=== PATIENT | male | born 1960 | race Caucasian/White ===

== ENCOUNTER 2017-05-25 15:43 | Inpatient (IN) | payer OTHER ==
[2017-05-25] VITALS (8 sets, daily range): BP systolic 106–219; BP diastolic 66–144
[~2017-05-25] VITALS: Ht 188 cm; Wt 88.0 kg
[2017-05-25] MEDS ORDERED: VISTARIL 25 MG25 M1 PO (16:05)
[2017-05-25] MEDS ORDERED: NORVASC10 MG PO (16:05)
[2017-05-25] MEDS ORDERED: TOPROL XL100 MG PO (16:06)
[2017-05-25] MEDS ORDERED: METFORMIN HCL500 MG PO ×2 (16:07→16:08)
[2017-05-25 16:13] LABS: ABSOLUTE BASOPHILS 0.1 thou/uL (0.0-0.2); ABSOLUTE EOSINOPHILS 0.3 thou/uL (0.0-0.7); ABSOLUTE LYMPHOCYTES 1.2 thou/uL (0.8-5.3); ABSOLUTE MONOCYTES 0.6 thou/uL (0.0-1.2); ABSOLUTE NEUTROPHILS 6.8 thou/uL (1.6-8.1); BASOPHILS 1.4 %; EOSINOPHILS 2.9 %; HEMATOCRIT 34.8 % (42.0-52.0); HEMOGLOBIN 11.7 gm/dL (14.0-18.0); LYMPHOCYTES 13.7 %; MCHC 33.7 g/dL (28.0-37.0); MONOCYTES 6.4 %; MPV 8.6 fl. (7.2-11.1); NUCLEATED RBCS 0 /100WBC; PLATELET COUNT* 184 thou/uL (150-400); POLYS 75.6 %; RBC 3.56 mil/uL (4.50-6.00); RDW-CV 14.5 % (10.5-14.5)
[2017-05-25 16:22] LABS: CALCIUM 8.2 mg/dL (8.5-10.1); CREATININE 15.8 mg/dL (0.6-1.3); POTASSIUM 4.7 mmol/L (3.5-5.1)
[2017-05-25 16:26] LABS: BE -8.2 mmol/L (-2 to +3); HCO3 15.3 mmol/L (22.0-26.0); PCO2 26.4 mmHg (35.0-45.0); PO2 78.1 mmHg (75.0-100.0); pH 7.382 (7.340-7.450)
[2017-05-25 16:27] LABS: ALBUMIN 2.6 g/dL (3.4-5.0); TOTAL BILIRUBIN 0.4 mg/dL (<0.1-1.0); TROPONIN-I LEVEL 0.13 ng/mL (<0.06)
[2017-05-25 16:45] LABS: INFLUENZA A ANTIGEN None Detected (None Detect); INFLUENZA B ANTIGEN None Detected (None Detect)
--- NOTE | 2017-05-25 18:30 | NUR ---
A WHITE MALE AGE 57 ADMITTED TO ICU ROOM 3 WITH CHEIF DIAGNOSIS OF ARF AND NONSTEMI. PT TRANSPORTED FROM CT TO ROOM. PT PLACED ON AT 2.0 LITERS.SIGNIFIGANT OTHER AND SON IN WATING ROOM. PT DENIES ANY COMPLAINTS OF PAIN AT THIS TIME. PT REFUSES F/C. PT TROPONIN BEING DRAWN AT THIS TIME. CONSULT TO BE OBTAINED FROM CASE MANAGEMENT DUE TO PT INABILITY TO AFFORD CURRENT HOME MEDS WHICH PT HAS BEEN OUT OF.SHIFT REPORT TO BE GIVEN.
[2017-05-26] VITALS (25 sets, daily range): BP systolic 120–173; BP diastolic 73–111
[2017-05-26 02:07] LABS: GLYCOHEMOGLOBIN (HGB A1C) 5.1 % (4.8-5.6)
[2017-05-26 02:44] LABS: ABSOLUTE BASOPHILS 0.1 thou/uL (0.0-0.2); ABSOLUTE EOSINOPHILS 0.1 thou/uL (0.0-0.7); ABSOLUTE LYMPHOCYTES 0.9 thou/uL (0.8-5.3); ABSOLUTE MONOCYTES 0.5 thou/uL (0.0-1.2); BASOPHILS 0.8 %; EOSINOPHILS 0.9 %; HEMATOCRIT 33.2 % (42.0-52.0); HEMOGLOBIN 11.1 gm/dL (14.0-18.0); LYMPHOCYTES 10.2 %; MCH 33.1 pg (26.0-34.0); MCHC 33.5 g/dL (28.0-37.0); MCV 98.8 fL (80.0-100.0); MONOCYTES 5.5 %; NUCLEATED RBCS 0 /100WBC; PLATELET COUNT* 167 thou/uL (150-400); POLYS 82.6 %; RBC 3.36 mil/uL (4.50-6.00); RDW-CV 14.3 % (10.5-14.5); WBC 8.5 thou/uL (4.0-11.0)
[2017-05-26 02:57] LABS: ANION GAP 17 mmol/L (7-16); BUN 125 mg/dL (7-18); CHLORIDE 102 mmol/L (98-107); CHOLESTEROL 137 mg/dL (<200); CO2 18 mmol/L (21-32); CREATININE 15.4 mg/dL (0.6-1.3); GLUCOSE 116 mg/dL (70-99); HDL CHOLESTEROL 38 mg/dL (>40); LDL CHOLESTEROL 78 mg/dL (<100); SODIUM 137 mmol/L (136-145); TC:HDL 3.6 Ratio (Not establshd); TRIGLYCERIDE 105 mg/dL (<150); VLDL 21 mg/dL (<40)
[2017-05-26 03:01] LABS: SERUM ASSESSMENT Clear
--- NOTE | 2017-05-26 11:16 | NUR ---
CARE ASSUMED AT 0700. PATIENT AWAKE, AOX4 UPON ENTERING ROOM. LETHARGIC THROUGHOUT THE MORNING. REPORTS HE DID NOT SLEEP LAST NIGHT. REFER TO ASSESSMENT AND VITALS. PULMONARY IS TREATING PATIENT FOR COPD EXACERBATION AEB SOA. LEVAQUIN DOSED BY PHARMACY FOR ELEVATED BUN/CREAT. STEROIDS STARTED TODAY. CT SCAN OF CHEST FOR NODULE IN LUNG COMPLETED. CARDIOLOGY COMPLETED ECHO TODAY. NEPHROLOGY DISCONTINUED LISINOPRIL, CHANGED FLUIDS TO 1/2 NS WITH 1 AMP BICARB, ORDERED LAB WORKUPS FOR AUTOIMMUNE DISEASES, AND CONSULTED IR FOR TUNNELED DIALYSIS CATHETER. ALL EXPLAINED TO PATIENT BY RESIDENTIAL APPRAISER, DR PHILLIPS AND PATIENT AGREED TO PLAN OF CARE. WILL CONTINUE WITH THIS PLAN OF CARE.
--- NOTE | 2017-05-26 11:30 | NUR ---
SPOKE WITH PT AND SIGNIFICANT OTHER CARMELINA AT BEDSIDE. PT LIVES AT HOME WITH CARMELINA AND THEIR 11 YEAR OLD SON. PT WAS ACTIVE AND INDEP AND WORKING UNTIL HE BECAME ILL, CARMELINA SAID HE HASN'T BEEN ABLE TO WORK FOR SEVERAL WEEKS. PT HAS NO HEALTH INSURANCE, HE NORMALLY GOES TO [facility] FOR HIS HEALTH CARE NEEDS. PT HAS BEEN OUT OF HIS MEDICATIONS AT HOME 'FOR AWHILE.' CARMELINA ASKING QUESTIONS ABOUT APPLYING FOR MEDICAID AND DISABILITY. GAVE HER INFORMATION ON APPLYING FOR DISABILITY, EXPLAINED THAT PT WOULD BE REFERRED TO [facility] TO ASSIST WITH MEDICAID PROCESS. ALSO PROVIDED CARMELINA WITH INFORMATION ON COMMUNITY RESOURCES TO HELP WITH OTHER FINANCIAL NEEDS. EXPLAINED ROLE OF CASE MGT, WILL CONTINUE TO FOLLOW. PT TO GET DIALYSIS CATH TODAY WITH PLANS TO START DIALYSIS TOMORROW.
[2017-05-26 12:35] LABS: APTT 28.7 Seconds (25.0-31.3); INR 1.1; PROTIME 10.7 Seconds (9.20-11.50)
[2017-05-26 12:40] LABS: % SATURATION 36 % (20-39); IRON 80 ug/dL (50-175)
--- NOTE | 2017-05-26 14:08 | NUR ---
PATIENT LEFT UNIT TO HAVE TUNNELED DIALYSIS CATHETER PLACED BY DR AC AT 1400.
--- NOTE | 2017-05-26 15:54 | NUR ---
PATIENT RETURNED FROM HAVING TUNNELED DIALYSIS CATHETER PLACED AT 1550.
--- NOTE | 2017-05-26 16:08 | 2DMMODE ---
[place] [address] 2 D/M-MODE ECHOCARDIOGRAM Name: GRISEL FOSTER Room: [address] ADM IN [facility]#: [id number] Admission: 05/25/17 Attend Phys: Salty Cain Discharge: Date of : 60 Date of Service: 05/26/17 1607 Report #: [id number] THIS REPORT FOR: //name// APPROVED REPORT Study performed: 05/26/2017 10:48:45 EXAM: Comprehensive 2D, Doppler, and color-flow Echocardiogram Patient Location: In-Patient Room #: 003 Status: routine BSA: 2.11 HR: 93 bpm BP: 137/85 mmHg Rhythm: NSR Other Information Study Quality: Good Indications Dyspnea 2D Dimensions LVEF(%): 52.88 (>50%) IVSd: 14.83 (7-11mm) LVOT Diam: 20.88 (18-24mm) LVDd: 46.19 mm PWd: 11.75 (7-11mm) Ascending Ao: 30.65 (22-36mm) LVDs: 33.67 (25-40mm) Aortic Root: 33.16 mm Dupree's LVEF: 52.88 % Volumes Left Atrial Volume (Systole) LA ESV Index: 29.00 mL/m2 Aortic Valve AoV Peak Tao.: 1.33 m/s AO Peak Gr.: 7.10 mmHg LVOT Max P.92 mmHg AO Mean Gr.: 4.33 mmHg LVOT Mean P.35 mmHg LVOT Max V: 0.85 m/s AO V2 VTI: 24.51 cm LVOT Mean V: 0.53 m/s SHENG (VTI): 2.17 cm2 LVOT V1 VTI: 15.53 cm Mitral Valve E/A Ratio: 1.60 [place] [address] 2 D/M-MODE ECHOCARDIOGRAM Name: GRISEL FOSTER Room: [address] IN [facility].#: [id number] Admission: 05/25/17 Attend Phys: Salty Cain Discharge: Date of : 60 Date of Service: 05/26/17 1607 Report #: [id number] MV Decel. Time: 203.05 ms MV E Max Tao.: 1.03 m/s MV PHT: 58.88 ms MVA (PHT): 3.74 cm2 TDI E/Lateral E': 8.58 E/Medial E': 11.44 Medial E' Tao.: 0.09 m/s Lateral E' Tao.: 0.12 m/s Pulmonary Valve PV Peak Tao.: 0.89 m/s PV Peak Gr.: 3.16 mmHg Left Ventricle The left ventricle is normal size. There is normal LV segmental wall motion. Mild concentric left ventricular hypertrophy. Left ventricular systolic function is mild to moderately decreased. LVEF is 45%. The left ventricular diastolic function is normal. Right Ventricle The right ventricle is normal size. The right ventricular systolic function is normal. Atria The left atrium size is normal. The right atrium size is normal. Aortic Valve aortic valvular sclerosis; vegetation cannot be excluded No aortic regurgitation is present. There is no aortic valvular stenosis. Mitral Valve The mitral valve is normal in structure. Trace mitral regurgitation. No evidence of mitral valve stenosis. Tricuspid Valve The tricuspid valve is normal in structure. Unable to assess PA pressure. Trace tricuspid regurgitation. Pulmonic Valve The pulmonary valve is normal in structure. There is no pulmonic valvular regurgitation. Great Vessels The aortic root is normal in size. IVC [place] [address] 2 D/M-MODE ECHOCARDIOGRAM Name: GRISEL FOSTER Room: [address] IN [facility]#: [id number] Admission: 05/25/17 Attend Phys: Salty Cain Discharge: Date of : 60 Date of Service: 05/26/17 1607 Report #: [id number] collapses with >50% inspiration Pericardium There is no pericardial effusion. <Conclusion> The left ventricle is normal size. Mild concentric left ventricular hypertrophy. Left ventricular systolic function is mild to moderately decreased. LVEF is 45%. The left ventricular diastolic function is normal. The right ventricle is normal size. The left atrium size is normal. aortic valvular sclerosis; vegetation cannot be excluded There is no aortic valvular stenosis. No aortic regurgitation is present. There is no aortic valvular stenosis. The mitral valve is normal in structure. Trace mitral regurgitation. The tricuspid valve is normal in structure. IVC is normal in size and collapses with >50% inspiration There is no pericardial effusion. There is normal LV segmental wall motion. <ELECTRONICALLY SIGNED> By: Karan Sands MD, FACC 05/26/17 1607 1607 1607 Karan Sands MD, FACC /INF
--- NOTE | 2017-05-26 17:32 | EKG ---
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: : 1960 Requested By: Jody Bowser Order Number: [id number] MD: Gilbert Thibodeaux Measurements Intervals [place] Rate: 122 P: 55 CT: 147 QRS: 11 QRSD: 80 T: 215 QT: 313 QTc: 446 Interpretive Statements Sinus tachycardia Left ventricular hypertrophy Consider left ventricular hypertrophy Anterior Q waves, possibly due to LVH Abnormal T, consider ischemia, diffuse leads No previous ECG available for comparison Electronically Signed On 05-26-2017 17:32:27 ORIENTAL MEDICINE PRACTITIONER by Gilbert Thibodeaux [email or web address] <ELECTRONICALLY SIGNED> By: Gilbert Thibodeaux MD, FACC 05/26/17 1732 1549 1549 Gilbert Thibodeaux MD, [facility] /EPI
--- NOTE | 2017-05-26 17:45 | NUR ---
PATIENT ASSESSMENT REMAINS UNCHANGED. REFER TO CHARTING. PATIENT RECIEVED TUNNELED DIALYSIS CATHETER TODAY BY DR AC, AND PER DR PHILLIPS WILL BEGIN DIALYSIS TOMORROW. PATIENT AND FAMILY UPDATED THAT IT MAY OR MAY NOT BE A TEMPORARY FIX. CASE MANAGEMENT WORKING WITH PATIENT TO PROVIDE COMMUNITY RESOURCES PATIENT IS THE SOLE PROVIDER FOR THE FAMILY. AT THIS TIME, PATIENT DENIES FURTHER NEEDS FROM NURSING STAFF.
[2017-05-26 18:58] LABS: URINE BILIRUBIN NEGATIVE (Negative); URINE BLOOD 3+ (Negative); URINE CLARITY CLEAR; URINE COLOR YELLOW; URINE GLUCOSE-RANDOM 1+ (Negative); URINE KETONES NEGATIVE (Negative); URINE LEUKOCYTES-REFLEX NEGATIVE (Negative); URINE NITRITE-REFLEX NEGATIVE (Negative); URINE PROTEIN 3+ (Negative); URINE SPECIFIC GRAVITY 1.025 (1.005-1.030); URINE UROBILINOGEN 0.2 E.U./dl (0.2-1.0)
[2017-05-26 19:08] LABS: SQUAMOUS 4-10 Moderate /LPF (0-3)
[2017-05-26 19:10] LABS: BACTERIA-REFLEX 1-9 Few /HPF (None Seen); MUCUS 0-3 Light strn/LPF (None Seen); URINE RBC 3-10 Few /HPF (0-2); URINE WBC-REFLEX 0-5 Rare /HPF (0-5)
[2017-05-26 19:14] LABS: AMORPHOUS URATES Moderate /LPF (None Seen); FINE GRANULAR CASTS 0-3 Few /LPF (None Seen); WAXY CAST 0-3 Few /LPF (None Seen)
[2017-05-26 21:07] LABS: PARATHYROID HORMONE 339 pg/mL (15-65)
[2017-05-26 22:09] LABS: eGFR IF AFRICAN AMERICAN 4 (>59)
[2017-05-27] VITALS (21 sets, daily range): BP systolic 122–188; BP diastolic 56–112
[2017-05-27 04:23] LABS: HEMATOCRIT 31.1 % (42.0-52.0); HEMOGLOBIN 10.5 gm/dL (14.0-18.0); MCH 33.2 pg (26.0-34.0); MCHC 33.7 g/dL (28.0-37.0); MCV 98.7 fL (80.0-100.0); MPV 9.1 fl. (7.2-11.1); NUCLEATED RBCS 0 /100WBC; PLATELET COUNT* 180 thou/uL (150-400); RBC 3.16 mil/uL (4.50-6.00); RDW-CV 14.3 % (10.5-14.5); WBC 9.8 thou/uL (4.0-11.0)
[2017-05-27 04:54] LABS: ALBUMIN 2.3 g/dL (3.4-5.0); CALCIUM 7.7 mg/dL (8.5-10.1); CREATININE 15.7 mg/dL (0.6-1.3); TOTAL BILIRUBIN 0.3 mg/dL (<0.1-1.0); TOTAL PROTEIN 6.4 g/dL (6.4-8.2)
[2017-05-27 05:21] LABS: POTASSIUM 6.4 mmol/L (3.5-5.1)
[2017-05-27 05:23] LABS: ABSOLUTE LYMPHOCYTES 0.5 thou/uL (0.8-5.3); ABSOLUTE MONOCYTES 0.3 thou/uL (0.0-1.2)
[2017-05-27 05:24] LABS: ANISOCYTOSIS 1+; PLATELET ESTIMATE ADEQUATE; POIKILOCYTOSIS 1+
--- NOTE | 2017-05-27 07:39 | NUR ---
ASSUMED CARE OF PATIENT AFTER RECEIVING BEDSIDE REPORT. PATIENT STATES HE IS FEELING MUCH BETTER. PATIENT IS SITTING AT THE EDGE OF BED. PATIENT IS STILL HYPERTENSIVE. ATOMIC PROCESS ENGINEER IN PLACE, SINUS TACHYCARDIA NOTED.
--- NOTE | 2017-05-27 11:21 | CON ---
[address] [address] CONSULTATION Name: GRISEL FOSTER Room: [address] IN [facility].#: [id number] Admission: 05/25/17 Attend Phys: Liza Corcoran Discharge: Date of : 60 Report #: [id number] THIS REPORT FOR: //name// CC: KUN physician/PCP Salty Cain REASON FOR CONSULTATION: Pulmonary nodule. HISTORY OF PRESENT ILLNESS: The patient is a 57-year-old male patient who presented to the Emergency Room with 2 weeks history of shortness of breath. The patient told me that he does not have a doctor, he does not follow with physician, although he is aware that he has some short of kidney disease. He smokes since his teenage years till now, around 1/2 a pack per day. For the last 2 weeks, he has been having increasing shortness of breath, cough and what he described as funny noises in his chest. He is producing green sputum. He is not sure if he had any fever. He denied any lower extremity edema. He reported that he had no sick contact, although reviewing the ER visit, his reported multiple family members had cold symptoms. He never had breathing issues before. According to the patient, he does not have history of lung disease, he is not on any inhalers and he is not on any oxygen at home and never been diagnosed with COPD. He was found to have significantly elevated BUN and creatinine. Also there is a report of confusion, although during my evaluation, he was awake, alert, oriented and provided appropriate history. REVIEW OF SYSTEMS: He reported that he had nausea and vomiting. He vomited a lot in the last 2 weeks, although overall he looks comfortable. He was on room air during my evaluation. He had no calf tenderness, no abdominal pain. The rest of the review system was negative. PAST MEDICAL HISTORY: Per the records, hypertension, diabetes mellitus and he told me he knows that he has chronic kidney disease. PAST SURGICAL HISTORY: Bilaterally one hernia repair. HOME MEDICATIONS: He is on Norvasc, hydroxyzine, metoprolol, metformin. ALLERGIES: PENICILLIN. SOCIAL HISTORY: He continues to smoke half a pack per day since he was teenage year, although he slowed down in the last 2 weeks because of shortness of breath. He does not drink alcohol excessively, does not abuse drugs. PHYSICAL EXAMINATION: VITAL SIGNS: On examination, he is on room air with saturation 97%, blood pressure was running high 170/100, pulse rate of 106. He is afebrile. GENERAL: He is comfortable in bed, speaks in full sentences, not in distress, [place] [address] CONSULTATION Name: GRISEL FOSTER Room: [address] IN .R.#: [id number] Admission: 05/25/17 Attend Phys: Liza Corcoran Discharge: Date of : 60 Report #: [id number] HEENT: Normocephalic, atraumatic. Pupils are equal, reactive to light. Extraocular muscle movements intact, ____ jaundice. Externally ears look healthy and normal. Nasal cavity patent passages. Oral cavity, slightly dry mucous membrane with Mallampati of II-III. NECK: Supple. No palpable lymph node, no palpable thyroid. Trachea central. CHEST: Diminished air movement bilaterally. Some crackles heard at the bases bilaterally. Very faint end expiratory wheeze. Symmetrical expansion, no tenderness. No deformity of the chest on inspection. HEART: S1, S2. No murmur, no gallop. ABDOMEN: Benign, soft, lax, nontender, positive bowel sounds. No masses felt. No rebound, no rigidity. EXTREMITIES: Lower extremities no edema, no calf tenderness. SKIN: Normal for age and race. No rash. LYMPHATICS: No palpable lymph node. PSYCHIATRIC: Mood and affect: During my evaluation, he was appropriate. Good insight and judgment. NEUROLOGIC: Moving 4 extremities spontaneously. No focal weakness. Cranial nerves grossly normal. LABORATORY DATA: Reviewed. He has a BUN of 125, creatinine of 15.4, although his potassium is 5, sodium 137. His white blood count is 9, hemoglobin 11.7, platelets 184. His D-dimer was elevated. His influenza A and B screen was negative. His V/Q scan was reported as low probability for PE. CT head, no intracranial pathology acutely. His chest x-ray showed interstitial prominence suggestive for interstitial lung disease versus interstitial edema and nodule on the left lung base. IMPRESSION: 1. Dyspnea and shortness of breath. 2. Presumed chronic obstructive pulmonary disease, likely in exacerbation. 3. Pulmonary infiltrate/pneumonia. 4. Pulmonary nodule. 5. Possible non-ST elevation myocardial infarction. PLAN: The patient's shortness of breath is multifactorial. I feel he has the pulmonary infiltrate and possibly pneumonia in addition to bronchitis. He is a smoker for a long time, although he does not carry a diagnosis, but his clinical picture is consistent with COPD exacerbation. On top of that he has chronic renal insufficiency with possible some fluid overload. I am going to treat him as COPD exacerbation with steroids, antibiotic and scheduled nebulization treatment. We will collect sputum for culture and sensitivity. We will do a CT scan of the chest for further evaluation of pulmonary nodule and the infiltrate. Cardiology input is pending, Nephrology input is pending. [facility] [address] [place] [address] CONSULTATION Name: GRISEL FOSTER Room: [address] IN .R.#: [id number] Admission: 05/25/17 Attend Phys: Liza Corcoran Discharge: Date of : 60 Report #: [id number] Thank you for the consult. We will follow along with you. <ELECTRONICALLY SIGNED> By: Rick Marcus MD 05/27/17 1121 0920 1920Rick Marcus MD /nt
--- NOTE | 2017-05-27 12:00 | NUR ---
PT TO ROOM 218 VIA WC. PT UP TO BR WITH STEADY GAIT. FAMILY AT BS. AWAITING DIALYSIS TODAY
--- NOTE | 2017-05-27 17:26 | NUR ---
PT UP TO ROOM THIS AM. PT ON DIALYSIS THIS AFTERNOON. FAMILY AT BS AND UPDATED ON PLAN OF CARE. PT INSTRUCTED ON STRESS TEST IN AM
[2017-05-28] VITALS (7 sets, daily range): BP systolic 146–187; BP diastolic 86–108
[2017-05-28 02:07] LABS: HEPATITIS B SURFACE AG Negative (Negative)
--- NOTE | 2017-05-28 04:24 | NUR ---
PT A/OX4, ST ON THE MONITOR, RA, FREE FROM PAIN/SOA, UP AD JANET, MEDS/ASSESSMENET PER CHARTING, HOURLY ROUNDING IN PLACE, FALL PRECAUTIONS IN PLACE, TEMP DIALYSIS CATH IN PLACE TO RIGHT UPPER CHEST WITH DRESSING IN PLACE, DRY DRAINAGE NOTED ON GAUZE UNDER TRANSPARENT DRESSING, LINE DRAWN AROUND TO MONITOR AREA, HAND THERMAL CUTTER IN PLACE, IV X1 REMOVED DUE TO CLOTTED OFF, ONE IV REMAINS IN PLACE SL, PT AWARE OF NPO STATUS AT MIDNIGHT DUE TO STRESS TEST IN THE AM, PT REC DIALYSIS 05/27 AND WHEN REVIEWING PHYSICAN NOTED PT TO HAVE DIALYSIS 05/28 WELL, HOUSE SUP REPORTED PT APPEARS TO BE SCHEDULED FOR 1230, PT REPORTS HE WILL NOT TAKE HYDRALAZINE AGAIN BECAUSE WHEN HE TOOK IT RECENTLY IT GAVE HIM A HEADACHE AND HE THREW UP, EDUCATED PT ON MONITORING HIS VS Q4 HOURS AND REPORTING ANY TYPE OF NEW SYMPTOMS SUCH WRAY, CP, DIZZINESS, AND PT STATED HIS UNDERSTANDING. WILL CONT TO MONITOR.
[2017-05-28 05:03] LABS: ABSOLUTE LYMPHOCYTES 0.6 thou/uL (0.8-5.3); ABSOLUTE MONOCYTES 0.5 thou/uL (0.0-1.2); ABSOLUTE NEUTROPHILS 11.1 thou/uL (1.6-8.1); BASOPHILS 0.2 %; HEMATOCRIT 32.1 % (42.0-52.0); HEMOGLOBIN 10.5 gm/dL (14.0-18.0); LYMPHOCYTES 5.1 %; MCH 32.6 pg (26.0-34.0); MCHC 32.8 g/dL (28.0-37.0); MCV 99.4 fL (80.0-100.0); MONOCYTES 4.3 %; NUCLEATED RBCS 0 /100WBC; PLATELET COUNT* 180 thou/uL (150-400); POLYS 90.4 %; RBC 3.23 mil/uL (4.50-6.00); RDW-CV 14.2 % (10.5-14.5); WBC 12.3 thou/uL (4.0-11.0)
[2017-05-28 05:28] LABS: ALBUMIN 2.3 g/dL (3.4-5.0); CALCIUM 7.9 mg/dL (8.5-10.1); TOTAL BILIRUBIN 0.2 mg/dL (<0.1-1.0); TOTAL PROTEIN 6.7 g/dL (6.4-8.2)
[2017-05-28 05:31] LABS: CREATININE 13.5 mg/dL (0.6-1.3); POTASSIUM 5.1 mmol/L (3.5-5.1)
--- NOTE | 2017-05-28 07:45 | NUR ---
RECEIVED REPORT. ASSUMED CARE OF PT AT 0730. CARDIAC MOTNIORING IN PLACE SR. AM ASSESSMENT AND VITALS COMPLETED CHARTED. PT'S BP ELEVATED THIS AM. PT ALERT AND ORIENTED. PT NPO PENDING STRESS TEST THIS AM. PT IS ALSO TO HAVE DIALYSIS AT 1230 TODAY. PT INFORMED OF PLAN OF CARE. PT DENIES ANY COMPLAINTS OF PAIN OR DISCOMFORT. PT IS UP INDEPENDENTLY. PT INFORMED OF PLAN OF CARE. PT COMMUNICATES UNDERSTANIDNG. CALL LIGHT IS WITHIN REACH. WILL CONTINUE TO MONITOR FOR DURAIOTN OF SHIFT.
--- NOTE | 2017-05-28 07:58 | NUR ---
PT SCREENING POSITIVE ON SEPSIS SCREENING DUE TO ELEVATED WBC, CREAT, AND HR. UCALL PLACED TO DR FOOTE REGARDING SCREENING AND POTASSIUM LAB, CALL REC WITH NO NEW ORDERS, PT SCHEDULED FOR DIALYSIS TODAY, INFORMED DAY RN.
[2017-05-28 10:08] LABS: ANTI-DNA SCREEN 1 IU/mL (0-9); ANTI-RNP <0.2 AI (0.0-0.9); GLOMERULR BASEM MEMBRN AB 4 units (0-20)
[2017-05-28 12:11] LABS: GLOBULIN TOTAL 3.6 g/dL (2.2-3.9); M-SPIKE Not Observed g/dL (Not Observed)
--- NOTE | 2017-05-28 13:32 | CARDNUC ---
[place] [address] CARDIAC NUCLEAR IMAGING REPORT Name: GRISEL FOSTER Room: [address] IN [facility]#: [id number] Admission: 05/25/17 Attend Phys: Salty Cain Discharge: Date of : 60 Date of Service: 05/28/17 1332 Report #: [id number] THIS REPORT FOR: //name// APPROVED REPORT Exam: Nuclear Stress Test Indication: Chest pain, Dyspnea Patient Location: In-Patient Room #: 218 Stress Tech: Kenia Elias Stress Nurse: Suki Mendes RN NM Tech:CRISTINE Carballo Ht: 6 ft 2 in Wt: 193 lbs BSA: 2.14 m2 BMI: 24.7 Medical History Medical History: htn dm Medications: metoprolol, amlodipine, aspirin, atrovastatin, isosorbide, lisinopril Allergies: penicillin Cardiac Risk Factors: htn,smoking,age,dm Previous Cardiac Procedures: none NM EXAM: Myocardial Perfusion REST/STRESS Imaging Protocol: Rest Tc-99m/Stress Tc-99m 1 day Resting Data Rest SPECT myocardial perfusion imaging was performed in supine position 30 minutes following the intravenous injection of 11.5 mCi of Tc-99m Sestamibi. Time of rest injection: 0755 Time of rest imagin The images were gated to evaluate regional wall motion and calculate left ventricular ejection fraction. Administration Route: IV Pharmacologic Stress Pharmacologic stress test was performed by injecting Regadenoson 0.4 mg IV push followed by the intravenous injection of 36.0 mCi of Tc-99m Sestamibi. Time of stress injection: 914 Time of stress imagin Administration Route: IV Gated Stress SPECT was performed 40 [place] [address] CARDIAC NUCLEAR IMAGING REPORT Name: GRISEL FOSTER Room: [address] IN [facility].#: [id number] Admission: 05/25/17 Attend Phys: Salty Cain Discharge: Date of : 60 Date of Service: 05/28/17 1332 Report #: [id number] injection. The images were gated to evaluate regional wall motion and calculate left ventricular ejection fraction. Prone imaging was performed. Study Quality Study: Fair Artifact: Moderate Diaphragmatic artifact Study Data At rest, the left ventricular ejection fraction was 48%.. Post stress, the left ventricular ejection was 48%.. TID = 0.96. Perfusion Supine images at rest and post Lexiscan stress show a moderate size area of photopenia in the inferior wall with diaphragmatic attenuation artifact. Post stress prone images show relatively uniform uptake of the radioisotope throughout the myocardium without defect. Gated studies show diffuse mild hypokinesis without obvious focal wall motion abnormality. Wall Motion Overall left ventricular systolic function appears mildly decreased with diffuse global hypokinesis without focal wall motion abnormality. Nuclear Conclusion ECG Findings: negative for ischemia Clinical Findings: negative for ischemia Nuclear Findings: negative for ischemia Exercise Capacity: not assessed Left Ventricular Function: abnormal Myocardial perfusion images show no defect to suggest infarct or ischemia. On gated studies left ventricle appears to be mildly diffusely hypokinetic without focal wall motion abnormality. Findings possibly consistent with a mild cardiomyopathy. This is not a high risk study Interpreted by: Gilbert Thibodeaux M.D. [facility] Electronically Approved: 05/28/2017 13:32:18 Stress Test Details Stress Test: Pharmacologic stress testing performed using 0.4 mg of regadenoson per 5 mL given IV over 10 seconds. Reason for pharmacologic stress test: [place] [address] CARDIAC NUCLEAR IMAGING REPORT Name: GRISEL FOSTER Room: [address]#: [id number] Admission: 05/25/17 Attend Phys: Salty Cain Discharge: Date of : 60 Date of Service: 05/28/17 1332 Report #: [id number] limitation. HR Resting HR: 107 bpm Max Heart Rate (APMHR): 163 bpm Max HR Achieved: 114 bpm Target HR (85% APMHR): 138 bpm % of APMHR: 69 Recovery HR: 110 bpm BP Resting BP: 186/109 mmHg Max BP: 159/92 mmHg ECG Resting ECG: Sinus Rhythm, nonspecific ST-T abnormalities Stress ECG: Sinus Rhythm, nonspecific ST-T abnormalities ST Change: None Arrhythmia: None Recovery ECG: Sinus Rhythm, NSSTT changes Recovery ST Change: None Recovery Arrhythmia: None Clinical Reason for Termination: Completed protocol Stress Symptoms: Nausea, Emesis, lightheaded Exercise duration: 0 min sec Exercise capacity: 1 METs Functional Aerobic Impairment 70% Patient had some nausea and vomiting with Lexiscan infusion but no chest pain. Nurse Comments pt co n/v, injected with aminophylline and symptoms resolved Stress ECG Conclusion The baseline 12-lead EKG showed sinus rhythm with diffuse T-wave inversion. EKGs obtained during and post Lexiscan infusion showed sinus rhythm with persistent T-wave inversion. There were no significant ST segment changes. There were no significant stress-induced arrhythmias. <Conclusion> The baseline 12-lead EKG showed sinus rhythm with diffuse T-wave inversion. EKGs obtained during and post Lexiscan infusion showed sinus rhythm with persistent T-wave inversion[place] [address] CARDIAC NUCLEAR IMAGING REPORT Name: GRISEL FOSTER Room: [address]#: [id number] Admission: 05/25/17 Attend Phys: Salty Cain Discharge: Date of : 60 Date of Service: 05/28/17 1332 Report #: [id number] segment changes. There were no significant stress-induced arrhythmias. <ELECTRONICALLY SIGNED> By: Gilbert Thibodeaux MD, FACC 05/28/171331 31 31 Gilbert Thibodeaux MD, FACC /INF
--- NOTE | 2017-05-28 17:11 | NUR ---
VSS. CARDIAC MONITORING IN PLACE WITH NO CHANGES THIS SHIFT. PT REMAINS ON RA. IV SALINE LOCKED. PT HAS HAD SOME COMPLAINTS OF HEADACHE THIS SHIFT. PRN TYLENOL GIVEN. PT PROGRESSING TOWARDS GOALS. PT DID HAVE MOTION SICKNESS WHEN GOING TO AND COMING BACK FROM DIALYSIS. PT UP INDEPENDENTLY IN ROOM. PT PLANNED TO HAVE RENAL BIOPSY ON WEDNESDAY. PT INFORMED OF PLAN OF CARE. CALL LIGHT IS WITHIN REACH. WILL CONTINUE TO MONITOR FOR DURAITON OF SHIFT.
[2017-05-29] VITALS: BP 160/92
[2017-05-29 04:00] VITALS: BP 141/81
[2017-05-29 04:56] LABS: ALBUMIN 2.3 g/dL (3.4-5.0); POTASSIUM 4.4 mmol/L (3.5-5.1); TOTAL BILIRUBIN 0.2 mg/dL (<0.1-1.0); TOTAL PROTEIN 6.4 g/dL (6.4-8.2)
[2017-05-29 05:09] LABS: CREATININE 9.7 mg/dL (0.6-1.3)
--- NOTE | 2017-05-29 05:49 | NUR ---
PT CALLED AND TOLD STAFF HE WAS GOING TO THROW UP. PT HAD MODERATE SIZE AMOUNT OF CLEAR EMISIS. PT GIVEN PRN PHENERGAN IV PUSH.
[2017-05-29 07:00] VITALS: BP 134/76
--- NOTE | 2017-05-29 08:00 | NUR ---
PT RESTING IN BED, SLEEP INTERUPTED , APPEARS O X 4, DENIES CHEST PAIN, SOB, PAIN OR DISCOMFORT, r CHEST DIALYSIS CATH, LAVERN N ON DIALYSIS THIS AFTERNOON
--- NOTE | 2017-05-29 13:33 | NUR ---
PT LEAVING FLOOR FOR DILAYSIS
[2017-05-29 17:25] VITALS: BP 162/98
--- NOTE | 2017-05-29 18:27 | NUR ---
Pt progressing towards goals. Had day 3 dialyis today. Bp improving. Some nausea today, remaisn o x 4, denies chest pain, SOB, pain or discomfort
[2017-05-29 20:01] VITALS: BP 150/87
--- NOTE | 2017-05-29 22:00 | NUR ---
ASSESSMENT AND VITALS COMPLETED CHARTED, VSS. PATIENT DENIES CHEST PAIN, SOB, PAIN OR DISCOMFORT. PATIENT DOES STATE HE IS VERY ANXIOUS AND WORKED UP BECAUSE "HE LOST HIS JOB RECENTLY AND HE JUST RECEIVED AN EVICTION NOTICE TO BE MOVED OUT OF HIS HOUSE BY Jun." PATIENT REQUESTING SOMETHING FOR ANXIETY. ORDERS RECEIVED FOR XANAX. FAMILY AT BEDSIDE. CALL LIGHT WITHIN REACH. GOAL IS ANXIETY AND BLOOD PRESSURE MANAGEMENT.
[2017-05-29 23:41] VITALS: BP 136/80
[2017-05-30 04:00] VITALS: BP 130/80
--- NOTE | 2017-05-30 04:17 | NUR ---
PATIENT PROGRESSING TOWARDS GOALS: PATIENT REPORTS FEELING MUCH BETTER AND LESS ANXIOUS. BLOOD PRESSURE CONTROLLED THROUGHOUT SHIFT WITHOUT PRN BP MEDS. HOURLY ROUNDING OBSERVED. CALL LIGHT WITHIN REACH
[2017-05-30 04:35] LABS: HEMATOCRIT 29.8 % (42.0-52.0); HEMOGLOBIN 10.1 gm/dL (14.0-18.0); MCH 33.2 pg (26.0-34.0); MCHC 34.1 g/dL (28.0-37.0); MCV 97.4 fL (80.0-100.0); MPV 8.5 fl. (7.2-11.1); RBC 3.06 mil/uL (4.50-6.00); RDW-CV 14.3 % (10.5-14.5); WBC 11.4 thou/uL (4.0-11.0)
[2017-05-30 04:52] LABS: CALCIUM 8.3 mg/dL (8.5-10.1); MAGNESIUM 1.8 mg/dL (1.8-2.4); POTASSIUM 4.6 mmol/L (3.5-5.1)
[2017-05-30 05:02] LABS: CREATININE 7.4 mg/dL (0.6-1.3)
[2017-05-30 13:18] VITALS: BP 149/90
[2017-05-30 16:32] VITALS: BP 141/87
--- NOTE | 2017-05-30 19:01 | NUR ---
PATINET RESTING IN BED. UP AD JANET IN ROOM. RIGHT TEMP TUNNELED DIALYSIS CATH. DIALYSIS IN AM ON WEDNESDAY AND RENAL BX SCHEDULED FOR 13:00 ON WEDNESDAY. VITLA SIGNS STABLE AND PATINET IN NO APPARENT DISTRESS AT THIS TIME. HOURLY ROUNDING COMPLETED FOR PATIENT SAFETY.
[2017-05-30 20:00] VITALS: BP 152/98
[2017-05-30 23:51] VITALS: BP 153/90
[2017-05-31] VITALS (15 sets, daily range): BP systolic 132–170; BP diastolic 72–108
--- NOTE | 2017-05-31 02:54 | NUR ---
PT A/OX4, ST-SR ON THE MONOTOR, VSS, RA, UP AD JANET, FREE FROM PAIN/SOA, MEDS/ASSESSMENT PER CHARTING, HOURLY ROUNDING/FALL PRECAUTIONS IN PLACE, PT REPORTED MULTIPLE TIMES HE HAS THE URGE TO URINATE BUT IS UNABLE TO GO, BLADDER SCAN COMPLETED WITH 290 CC NOTED, PT ATTEMPTED MULTIPLE TIMES TO URINATE WITHOUT BEING ABLE TO VOID, STRAIGHT CATH ORDER REC AND COMPLETED WITH DARK YELLOW OUTPUT OF 125 CC REC, R-DIALYSIS PORT FREE FROM HEAT/SWELLING, DRESSING IN PLACE, DAUGHTER STAYED OVER NIGHT, PT GIVEN SLEEPING AIDE AT 0200 AND EDUCATED PT ON TURNING TV/LIGHTS OFF, AND TRYING TO REST, PT WAS UP WATCHING TV AND PLAYING CARD GAMES WITH DAUGHTER. WILL CONT TO MONITOR.
[2017-05-31 05:09] LABS: HEMATOCRIT 28.4 % (42.0-52.0); HEMOGLOBIN 9.9 gm/dL (14.0-18.0); MCH 32.7 pg (26.0-34.0); MCV 93.6 fL (80.0-100.0); MPV 8.4 fl. (7.2-11.1); RBC 3.03 mil/uL (4.50-6.00); RDW-CV 13.8 % (10.5-14.5); WBC 11.2 thou/uL (4.0-11.0)
[2017-05-31 05:45] LABS: ALBUMIN 2.3 g/dL (3.4-5.0); CALCIUM 7.9 mg/dL (8.5-10.1); POTASSIUM 4.6 mmol/L (3.5-5.1); TOTAL BILIRUBIN 0.2 mg/dL (<0.1-1.0); TOTAL PROTEIN 5.6 g/dL (6.4-8.2)
[2017-05-31 05:50] LABS: CREATININE 8.7 mg/dL (0.6-1.3)
--- NOTE | 2017-05-31 10:38 | NUR ---
PATIENT CURRENTLY IN DIALYSIS. RENAL BIOPSY SCHEDULED AT 13:00. VITAL SIGNS STABLE AND PATINET IN NOAPPARENT DISTRESS. THERE IS A QUESTION REGARDING PROPER DIETARY REGIMEN FOR HIS CURRENT RENAL FUNCTION. WILL ADDRESS DIETARY REQUIREMWENTS WITH PRIMARY AND NEPHROLOGY. EF 45%. WILL CONTINUE TO MONITOR PATIENT. HOURLY ROUNDING BEING PERFORMED FOR PATIENT SAFETY.
--- NOTE | 2017-05-31 15:27 | NUR ---
Spoke with Dr Cain today, Pt is end stage kidney disease and will need outpt dialysis set up per Dr Cain. Nurse to speak with renal Dr. MORENO to initiate outpt dialysis set up once ok'd by renal Dr. Pt is [place] pending, JOSH will updated [facility] once final dx available. Following.
[2017-06-01 00:25] VITALS: BP 170/101
[2017-06-01 04:23] VITALS: BP 152/95
[2017-06-01 04:24] LABS: ALBUMIN 2.2 g/dL (3.4-5.0); CALCIUM 7.8 mg/dL (8.5-10.1); CALCIUM 7.9 mg/dL (8.5-10.1); PHOSPHORUS* 5.1 mg/dL (2.5-4.9); POTASSIUM 5.2 mmol/L (3.5-5.1); POTASSIUM 5.3 mmol/L (3.5-5.1); TOTAL BILIRUBIN 0.2 mg/dL (<0.1-1.0); TOTAL PROTEIN 5.7 g/dL (6.4-8.2)
[2017-06-01 04:32] LABS: CREATININE 6.4 mg/dL (0.6-1.3)
[2017-06-01 04:33] LABS: CREATININE 6.4 mg/dL (0.6-1.3)
[2017-06-01 04:59] LABS: HEMATOCRIT 25.9 % (42.0-52.0); HEMOGLOBIN 9.2 gm/dL (14.0-18.0); MCH 33.1 pg (26.0-34.0); MCHC 35.4 g/dL (28.0-37.0); MCV 93.6 fL (80.0-100.0); MPV 8.4 fl. (7.2-11.1); NUCLEATED RBCS 0 /100WBC; PLATELET COUNT* 138 thou/uL (150-400); RBC 2.77 mil/uL (4.50-6.00); RDW-CV 13.6 % (10.5-14.5)
--- NOTE | 2017-06-01 05:51 | NUR ---
ASSUMED PT CARE AT 1930, PT IS A&OX4, PT IS TRACING NSR/ST ON THE MONITOR, ON RA SATTING MID TO HIGH 90'S. PT IS UP AD JANET IN HIS ROOM AND STABLE ON HIS FEET. PT HAD A RIGHT TEMP DIALYSIS CATH. PT HAD A RENAL BIOPSY TO RIGHT KIDNEY, BIOPSY SITE IS CDI. PT HAD EPISODE OF NAUSEA AND VOMITING ONCE THIS SHIFT. NAUSEA MEDICATIONS GIVEN PER JUL. BED IN LOW POSITION, CALL LIGHT IN RAECH, BED IN LOW POSITION. HOURLY ROUNDING COMPLETED FOR PT SAFETY. Y
[2017-06-01 05:58] LABS: ABSOLUTE LYMPHOCYTES 0.4 thou/uL (0.8-5.3); ABSOLUTE MONOCYTES 0.1 thou/uL (0.0-1.2); ABSOLUTE NEUTROPHILS 6.6 thou/uL (1.6-8.1); ANISOCYTOSIS 1+; PLATELET ESTIMATE ADEQUATE; POIKILOCYTOSIS 1+
--- NOTE | 2017-06-01 10:02 | NUR ---
[facility] rep to come and meet with Pt this week to begin [place] medicaid process. Anticipate that Pt will need outpt dialysis set up, waiting for renal's input. Following.
[2017-06-01 11:29] VITALS: BP 157/91
[2017-06-01 15:47] VITALS: BP 121/79
--- NOTE | 2017-06-01 19:49 | NUR ---
KERA RESTING IN BED. EXTENSIVE TIME SPENT EDUCATING PATIENT REGARDING RENAL STATUS, RENAL DIET, AND THE NEED FOR CONTINUED DIALYSIS UPON DISCHARGE. VITAL SIGNS STABLE AND PAITETIN NOAPPARENT DISTRESS A THIS TIME. HOURLY ROUNDING COMPLETED FOR PATIENT SAFETY.
[2017-06-01 20:22] VITALS: BP 153/99
[2017-06-02 00:37] VITALS: BP 144/89
[2017-06-02 04:05] VITALS: BP 139/84
[2017-06-02 05:08] LABS: ABSOLUTE BASOPHILS 0.1 thou/uL (0.0-0.2); ABSOLUTE EOSINOPHILS 0.1 thou/uL (0.0-0.7); ABSOLUTE LYMPHOCYTES 1.6 thou/uL (0.8-5.3); ABSOLUTE NEUTROPHILS 9.8 thou/uL (1.6-8.1); BASOPHILS 0.4 %; EOSINOPHILS 0.7 %; HEMATOCRIT 26.1 % (42.0-52.0); HEMOGLOBIN 8.9 gm/dL (14.0-18.0); LYMPHOCYTES 12.8 %; MCH 33.1 pg (26.0-34.0); MCHC 34.1 g/dL (28.0-37.0); MCV 97.2 fL (80.0-100.0); MONOCYTES 7.7 %; MPV 8.7 fl. (7.2-11.1); NUCLEATED RBCS 0 /100WBC; PLATELET COUNT* 129 thou/uL (150-400); POLYS 78.4 %; RBC 2.69 mil/uL (4.50-6.00); WBC 12.5 thou/uL (4.0-11.0)
[2017-06-02 05:20] LABS: POTASSIUM 4.3 mmol/L (3.5-5.1)
[2017-06-02 05:21] LABS: ALBUMIN 2.3 g/dL (3.4-5.0); PHOSPHORUS* 5.8 mg/dL (2.5-4.9); POTASSIUM 4.3 mmol/L (3.5-5.1)
[2017-06-02 05:32] LABS: CREATININE 8.3 mg/dL (0.6-1.3)
[2017-06-02 05:36] LABS: CREATININE 8.2 mg/dL (0.6-1.3)
--- NOTE | 2017-06-02 06:32 | NUR ---
Pt states he rested well overnight. Daughter stayed in pt's room overnight. Dtr states she will need some documentation to show her senior administrative services officer to demonstrate pt is in hospital. Pt is alert, oriented, and up ad alanna. VSS. Will continue to monitor.
--- NOTE | 2017-06-02 07:25 | NUR ---
CHNAGE OF SHIFT, BEDSIDE REPORT GIVEN ASUUMED PATIENT CARE PATIENT UP IN DIALYSIS
[2017-06-02 08:00] VITALS: BP 140/98
--- NOTE | 2017-06-02 08:53 | NUR ---
Faxed outpt dialysis referral to [facility], per renal note yesterday, Pt will need outpt dialysis at id. Awaiting decision to accept and chair time.
--- NOTE | 2017-06-02 11:49 | S ---
[place] [address] SURGICAL PATH RPT PROCEDURE Name: GRISEL FOSTER Room: [address] IN .R.#: [id number] Admission: 05/25/17 Date of : 60 Discharge: Report #: [id number] Path Case #: [id number] PATHOLOGY REPORT COLLECTION DATE: 05/31/2017 RECEIVED DATE: 05/31/2017 SUBMITTING PHYS: Dr. Salty Cain OTHER PHYS: SPECIMEN(S) RECEIVED: A.Right renal bx * * * * * * * * * * * * FINAL DIAGNOSIS: Please see next page for scanned image of report submitted by [facility] bank consultant pathologist, Blayne Alaniz M.D. (HOLDEN:amj; d/t: 06/02/2017) PATHOLOGIST: Trevon Glaser M.D. REPORT ELECTRONICALLY SIGNED BY: Trevon Glaser M.D. DATE/TIME: 06/02/2017 11:49 * * * * * * * * * * * * GROSS PATHOLOGY: The specimen is received in formalin labeled "Grisel Foster, right kidney". Received is a single needle core of pale acevedo soft tissue measuring approximately 1.9 cm in length and 0.1 cm in diameter. The specimen is forwarded to an outside laboratory for further processing. The specimen is received in Deonte fixative, labeled "Grisel Foster, right kidney BX". Received is a single needle core of pink-acevedo, soft tissue measuring approximately 1.5 cm in length and 0.1 cm in diameter. The specimen is forwarded to an outside laboratory for direct immunofluorescence studies. (TSD; 05/31/2017) CLINICAL HISTORY: Elevated creat INITIAL CPT CODE(S): A; 43669 Professional and Technical services performed by [employer], [address], [place] [address]. [place] [address] SURGICAL PATH RPT PROCEDURE Name: GRSIEL FOSTER Room: [address] IN [facility]#: [id number] Admission: 05/25/17 Date of : 60 Discharge: Report #: [id number] Path Case #: [id number] [facility] [address] [address] PHONE: [phone] DIRECTOR: Damir Kohler M.D. * * * END OF REPORT * * *
[2017-06-02 12:24] VITALS: BP 175/89
--- NOTE | 2017-06-02 13:40 | NUR ---
Nutrition: Consult received again today. Pt is a new dialysis pt. RD spoke with pt and daughters yday about renal diet for dialysis. Provided family with my contact info and encourage them to call with questions/concerns. Pt needs to follow up with dialysis RD outpatient as well.
--- NOTE | 2017-06-02 14:35 | OP ---
[facility] [address] [place] [address] OPERATIVE REPORT Name: GRISEL FOSTER Room: [address] IN M.R.#: [id number] Admission: 05/25/17 Attend Phys: Liza Corcoran Discharge: Date of : 60 Report #: [id number] THIS REPORT FOR: //name// CC: KUN physician/PCP Salty Cain DATE OF SERVICE: 05/26/2017 PREOPERATIVE DIAGNOSIS: Acute renal failure. POSTOPERATIVE DIAGNOSIS: Acute renal failure. SURGEON: David Durham DO. CLASS A LINEMAN: None. PROCEDURE: 1. Ultrasound-guided access, right internal jugular vein. 2. Tunneled dialysis catheter placement. ANESTHESIA: Moderate sedation. ESTIMATED BLOOD LOSS: Minimal. SPECIMEN: None. COMPLICATIONS: None. CONDITION: Stable. DISPOSITION: ICU. INDICATIONS FOR THE PROCEDURE AND CONSENT: The patient is a 57-year-old male who presented with acute renal failure with creatinine greater than 15. Tafe Lecturer assessed the patient and expects the patient will need long-term hemodialysis and requested tunneled dialysis catheter placement for both acute and likely chronic hemodialysis access. Risks and benefits of this were discussed with the patient including infection, bleeding, pneumothorax, need for additional procedures including AV fistula. The patient wished to proceed, was consented and scheduled. PROCEDURE IN DETAIL: After timeout was performed, the patient was placed in supine position with sterile prep and drape of the anterior neck and chest wall. Ultrasound was utilized to identify the right internal jugular vein and Seldinger technique used to place a Seldinger needle and wire. The needle was removed and exchanged for an introducer sheath. A second wire was advanced [facility] [address] [place] [address] OPERATIVE REPORT Name: GRISEL FOSTER Room: [address] IN [facility].#: [id number] Admission: 05/25/17 Attend Phys: Liza Corcoran Discharge: Date of : 60 Report #: [id number] through the introducer sheath and the sheath was removed. The wire ____ confirmed to be within the vena cava by fluoroscopy. The tract was dilated with the medium and large dilators and the dual lumen catheter placed over both wires and into the vena cava. The stylets and wires were then removed and the catheter was clamped. A separate stab incision was made on the chest wall after injecting lidocaine and a tunnel created between the 2 incisions. Catheter was then tunneled out on the chest wall without difficulty. Catheter was cut to length and two caps were applied and each catheter aspirated and flushed without difficulty. The catheter was then locked with 1000 units per mL of heparin. The neck incision was then closed with 4-0 Monocryl suture and Dermabond dressing was applied. Sterile dressing was applied to the exit site of the catheter. The patient tolerated the procedure well. Lap, needle and instrument counts were correct. A portable chest x-ray is pending. <ELECTRONICALLY SIGNED> By: David Durham DO 06/02/17 1435 1602 [id number] Durham DO /nt
[2017-06-02 15:31] VITALS: BP 125/80
--- NOTE | 2017-06-02 18:38 | NUR ---
PATIENT IN ROOM WATCHING TV REMAINS A AND O X 4 NSR LUNGS CTA/DIM/RA GOOD APPETITE BM TODAY URINE OUTPUT SEVEWRAL TIMES, UNSEEN UP AD JANET VARIOUS BRUISES AND SEVERAL ABRASIONS AND SCABS NO C/O PAIN TODAY IV L FA 20 GA SL R CHEST SC TRIPLE CL ACCUCHECKS 90/132, OFF THE FLOOR IN DIALYSIS THIS AM UNABLE TO GET AM READING DIALYSIS TODAY 2L OFF VEIN MAPPING COMPLETED TODAY ABN LABS MONITORED WBC 12.5, HGB 8.9, CR 7.3, BUN 76
[2017-06-02 20:27] VITALS: BP 134/82
[2017-06-03 00:08] VITALS: BP 153/93
--- NOTE | 2017-06-03 02:10 | NUR ---
Pt reports no complaints. VSS, BP elevated at times. SR-ST per monitor. Pt's s.o. inquired about whether hospital will fill prescriptions. States they have applied for Medicaid, but she is concerned about how they'll be able to afford medications as he had always been the provider, but now unable to work. Pt has IV to LFA, but there is order for no art/francisco punctures, BP, IV, or lab draws to LUE for future AVF. Limb alert placed to L arm. Pt requests that IV remain until morning. Will continue to monitor.
[2017-06-03 04:15] VITALS: BP 156/87
[2017-06-03 05:35] LABS: ABSOLUTE MONOCYTES 0.9 thou/uL (0.0-1.2); ABSOLUTE NEUTROPHILS 8.8 thou/uL (1.6-8.1); BASOPHILS 0.1 %; EOSINOPHILS 0.2 %; HEMATOCRIT 26.3 % (42.0-52.0); HEMOGLOBIN 8.8 gm/dL (14.0-18.0); LYMPHOCYTES 9.4 %; MCHC 33.3 g/dL (28.0-37.0); MCV 99.3 fL (80.0-100.0); MONOCYTES 8.6 %; NUCLEATED RBCS 0 /100WBC; PLATELET COUNT* 132 thou/uL (150-400); POLYS 81.7 %; RBC 2.65 mil/uL (4.50-6.00); WBC 10.8 thou/uL (4.0-11.0)
[2017-06-03 05:44] LABS: CALCIUM 7.7 mg/dL (8.5-10.1); POTASSIUM 4.5 mmol/L (3.5-5.1)
[2017-06-03 08:00] VITALS: BP 128/66
--- NOTE | 2017-06-03 09:51 | NUR ---
Spoke with Pt regarding disposition. Updated Pt on status of outpt dialysis set up. Spoke with Hussein at [facility], working on confirming funding source. Pt is [place] pending and should qualify for Medicare, if he has enough work credits. Hussein informed that Pt's case would be sent to the unfunded department and could take several days to confirm funding source. Updated Pt. Pt requested that CM contact his SO, Jossyphyllis for her. Following.
--- NOTE | 2017-06-03 11:14 | NUR ---
RECEIVED REPORT. ASSUMED CARE OF PT AT 0730. PT A/O X4. VSS. O2 SAT 96% ON ROOM AIR. CARDAIC MONITOR IN PLACE TRACING SR/ST. AM ASSESSMENT AND VITALS COMPLETED CHARTED. IV SALINE LOCKED. TEMPORARY RIGHT CHEST DIALYSIS ACCESS DEVICE IN PLACE. PT DENIES PAIN OR DISCOMFORT AT THIS TIME. BS LOW THIS AM, 32 - JUICE AND CRACKERS GIVEN; PT UP TO 69. PT ATE ABOUT 50% OF BREAKFAST. PT ANXIOUS TO GO HOME; SEEMS FRUSTRATED WITH LIFE SITUATION. PT INFORMED OF PLAN OF CARE. PT COMMUNICATES UNDERSTANDING. PT WORKING WITH CASE MANAGEMENT. LOW FALL RISK PRECAUTIONS IN PLACE. CALL LIGHT IS WITHIN REACH. WILL CONTINUE TO MONITOR.
[2017-06-03 11:51] VITALS: BP 145/85
[2017-06-03 15:30] VITALS: BP 138/85
--- NOTE | 2017-06-03 18:18 | NUR ---
VSS. PT REMAINS A&O X4. O2 SAT >90% ON ROOM AIR. CARDAIC MONITOR IN PLACE TRACING SR/ST. PT SHOWING FAIR APPETITE THIS SHIFT, EATING AROUND 50% OF MEALS. BLOOD GLUCOSE LEVEL UP TO NORMAL RANGE THIS EVENING AFTER BEING 62 AT LUNCH. PT SPOKE ON THE PHONE FREQUENTLY WITH FAMILY. PT UP TO BATHROOM TO VOID A COUPLE TIMES, OLIGURIC. PT HAD BM X2. PT CONTINUES TO DENY PAIN OR DISCOMFORT. PT ANXIOUS TO GO HOME. PT WAITING ON DIALYSIS PLACEMENT. LOW FALL RISK PRECAUTIONS IN PLACE. CALL LIGHT IS WITHIN REACH. WILL CONTINUE TO MONITOR FOR DURATION OF SHIFT. HOURLY ROUNDING PERFORMED.
[2017-06-03 20:00] VITALS: BP 152/87
[2017-06-04] VITALS (9 sets, daily range): BP systolic 134–175; BP diastolic 62–103
--- NOTE | 2017-06-04 03:37 | NUR ---
PT ALERT ORIENTED. XANAX GIVEN ONCE. TELEMETRY SHOWS ST. ON RA. ACCUCHECK HS 57. PT ATE VALENTINO BROUGHT BY FAMILY. THEN RECHECK OF BS 104. R SUBCLAVIAN HD CATH COVERED. LEFT LIMB ALERT ON TO PRESERVE FOR FURTURE FISTULA PLACEMENT. WILL CONTINUE TO MONITOR.
--- NOTE | 2017-06-04 05:54 | NUR ---
PTS 0400 BP 175/103 HR 108. HYDRALAZINE IVP 10MG GIVEN. BP DOWN 140/90 HR 115.
--- NOTE | 2017-06-04 08:10 | NUR ---
RECEIVED REPORT. ASSUMED CARE OF PT AT 0730. VSS. PT A&O X4. O2 SAT 96% ON ROOM AIR. OPERATIONS VICE PRESIDENT IN PLACE TRACING SR/ST. AM ASSESSMENT AND VITALS COMPLETED CHARTED. IV TO RIGHT FOREARM SALINE LOCKED. TEMPORARY DIALYSIS ACCESS TO RIGHT SUBCLAVIAN IN PLACE. LIMB ALERT TO LEFT EXTREMITY FOR POTENTIAL FISTULA PLACEMENT. PT DENIES PAIN OR DISCOMFORT AT THIS TIME. PT TO HAVE DIALYSIS THIS AM AROUND 830. PT INFORMED OF PLAN OF CARE, COMMUNICATES UNDERSTANDING. PT SEEMS SAD AND IS ANXIOUS FOR DISCHARGE. REASSURANCE GIVEN. LOW FALL RISK PRECAUTIONS IN PLACE. CALL LIGHT IS WITHIN REACH. WILL CONTINUE TO MONITOR.
--- NOTE | 2017-06-04 15:04 | NUR ---
Following for d/c planning needs. Received telephone call from [facility]. Spoke with Tr and Leanna. Per previous CM note, plan was for pt to go to [facility] for dialysis, not [place]. Called Leonidas at [facility]. He said he was not aware that pt had changed clinic sites. He said he would need to obtain financial and medical clearance for [facility] and he would not have clearance until Wednesday. Will remain available to assist as needed.
--- NOTE | 2017-06-04 19:47 | NUR ---
VSS. O2 SAT REMAINS >90% ON ROOM AIR. CASH SALES AUDIT CLERK REMAINS IN PLACE WITH NO CHANGES THIS SHIFT. PT COMPLETED DIALYSIS AND THEN WENT TO THE OR FOR DIALYSIS FISTULA PLACEMENT. PT RETURNED TO UNIT AT 1500. PT RESTED UNTIL DINNER - SHOWED GOOD APPETITE AT DINNER. UP AD JANET. PT ASKED QUESTIONS REGARDING FISTULA - EDUCATION GIVEN. PT COMMUNICATES UNDERSTANDING. SLOWLY PROGRESSING TOWARD GOALS. FAMILY AT BEDSIDE THIS EVENING. LOW FALL RISK PRECAUTIONS IN PLACE. PT REPOSITIONING SELF IN THE BED. CALL LIGHT IS WITHIN REACH. HOURLY ROUNDING PERFORMED.
[2017-06-05 04:03] VITALS: BP 147/85
--- NOTE | 2017-06-05 04:37 | NUR ---
ASSUMED CARE OF PATIENT AT [address] ON THE MONITOR O2 SAT MAINTAINED ON RA CONTINUES TO BE UP AD JANET THE ROUTINE REGIMEN CONTINUES TO BE EFFECTIVE FOR SX MANAGEMENT EDUCATION GIVEN AT SHIFT START TO PATIENT ET SPOUSE REGARDING AV FISTULA TUNNELED ET TEMP ACCESS PATIENT AND SPOUSE STATE UNDERSTANDING ET DENY FURTHER CONCERNS SAFETY INTERVENTIONS CONTINUE BED LOWERED WHEELS LOCKED CALL LIGHT IN REACH SIDE RAILS UP REPORT TO BE GIVEN TO ONCOMING RN
--- NOTE | 2017-06-05 07:15 | NUR ---
CHANGE OF SHIFT, BEDSIDE REPORT GIVEN ASSUMED PATIENT CARE PATIENT SEEN AT BEDSIDE, ASLEEP
[2017-06-05 08:00] VITALS: BP 154/83
[2017-06-05 12:00] VITALS: BP 172/105
[2017-06-05 14:49] LABS: CALCIUM 7.9 mg/dL (8.5-10.1); CREATININE 6.8 mg/dL (0.6-1.3); POTASSIUM 4.7 mmol/L (3.5-5.1)
[2017-06-05 16:12] VITALS: BP 137/87
[2017-06-05 16:14] VITALS: BP 137/87
--- NOTE | 2017-06-05 18:47 | NUR ---
PATIENT SITTING IN BED WATCHING TV REMAINS A AND O X 4 SR/ST LUNGS CTA/DIM/RA GOOD APPETITE LAST BM T-1 POOR URINE OUTPUT UNSEEN, ONE VOID REPORTED UP AD JANET VARIOUS SCABS, BRUISES IV R FA 2O GA SL L UARM FISTULA WITH THRILL AND BRUIE TEMP PORT R SC C/O TENDERNESS AT L UARM FISTULA SITE REF PAIN MEDICATION ACCUCHECKS 90/60/106 CALL LIGHT IN REACH AND INSTRUCTION GIVEN AND FOLLOWED REF SCDS
[2017-06-05 20:00] VITALS: BP 124/75
[2017-06-06] VITALS: BP 113/68
[2017-06-06 04:11] VITALS: BP 142/73
--- NOTE | 2017-06-06 05:54 | NUR ---
ASSUMED CARE OF PATIENT AT 1900 THE PATIENT PROGRESSES TOWARDS GOALS REMAINS ST ON THE MONITOR O2 SAT MAINTAINED ON RA CONTINUES TO BE UP AD JANET THE ROUTINE ET PRN REGIMEN CONTINUES TO BE EFFECTIVE FOR SX MANAGEMENT MORPHINE ADMINISTERED X 1 FOR LUE FISTULA SITE PAIN PATIENT REPORTS EPISODE OF EMESIS IN WASTE BASKET NOT WITNESSED OFFERED ZOFRAN ET PATIENT DECLINED STATING HE LAID TOO FLAT WAS THE REASON WHY SAFETY INTERVENTIONS CONTINUE BED LOWERED WHEELS LOCKED CALL LIGHT IN REACH SIDE RAILS UP REPORT TO BE GIVEN TO ONCOMING CHANI
--- NOTE | 2017-06-06 07:20 | NUR ---
CHANGE OF SHIFT, BEDSIDE REPORT GIVEN ASSUMED PATIENT CARE PATIENT SEEN AT BEDSIDE, ASLEEP
[2017-06-06 08:00] VITALS: BP 171/95
--- NOTE | 2017-06-06 16:06 | NUR ---
PATIENT TRANSFERRED TO RM 109 REPORT GIVEN TO CHANI WELSH PATIENT AND BELONGINGS MOVED TO RM 109
[2017-06-06 17:13] VITALS: BP 168/87
[2017-06-06 21:00] VITALS: BP 164/93
[2017-06-06 21:30] VITALS: BP 164/93
[2017-06-07 00:53] VITALS: BP 143/86
[2017-06-07 04:26] LABS: HEMATOCRIT 27.5 % (42.0-52.0); HEMOGLOBIN 9.3 gm/dL (14.0-18.0); MCH 33.9 pg (26.0-34.0); MCHC 33.8 g/dL (28.0-37.0); MCV 100.2 fL (80.0-100.0); MPV 8.8 fl. (7.2-11.1); NUCLEATED RBCS 0 /100WBC; PLATELET COUNT* 117 thou/uL (150-400); RBC 2.75 mil/uL (4.50-6.00); RDW-CV 14.4 % (10.5-14.5); WBC 10.5 thou/uL (4.0-11.0)
[2017-06-07 04:38] LABS: CALCIUM 7.6 mg/dL (8.5-10.1); POTASSIUM 5.8 mmol/L (3.5-5.1)
[2017-06-07 04:41] LABS: CREATININE 9.3 mg/dL (0.6-1.3)
[2017-06-07 05:05] VITALS: BP 165/98
--- NOTE | 2017-06-07 05:56 | NUR ---
ALERT AND ORIENTED X4. DENIED NEED FOR PAIN OR NAUSEA MEDICATION. UP AD JANET IN ROOM. BRUSING NOTED AROUND NEW DIALYSIS FISTULA LEFT ARM. BRUIT AND THRILL PRESENT. DRY RASH NOTED ON LOWER BACK AND UNDER ARM. PATIENT STATED RASH HAS BEEN THERE FOR LONG TIME. TESSIO PORT PRESENT RIGHT UPPER CHEST. CALL LIGHT WITHIN REACH.
[2017-06-07 07:30] VITALS: BP 99/56
[2017-06-07 08:24] LABS: ABSOLUTE BASOPHILS 0.1 thou/uL (0.0-0.2); ABSOLUTE LYMPHOCYTES 0.9 thou/uL (0.8-5.3); ABSOLUTE MONOCYTES 0.8 thou/uL (0.0-1.2); ABSOLUTE NEUTROPHILS 8.6 thou/uL (1.6-8.1); HYPOCHROMASIA 1+; MACROCYTES 1+; PLATELET ESTIMATE DECREASED
--- NOTE | 2017-06-07 09:12 | CON ---
[address] [address] CONSULTATION Name: GRISEL FOSTER Room: [address] IN .R.#: [id number] Admission: 05/25/17 Attend Phys: Liza Corcoran Discharge: Date of : 60 Report #: [id number] THIS REPORT FOR: //name// CC: KUN physician/PCP Salty Cain DATE OF SERVICE: 05/26/2017 REQUESTING PHYSICIAN: Dr. Cain. REASON FOR CONSULTATION: Abnormal renal function. HISTORY OF PRESENT ILLNESS: The patient is a 57-year-old white male with medical history significant for uncontrolled hypertension, diabetes mellitus type 2, COPD. Unfortunately, the patient has not been taking his medication because he could not afford them. The patient presents to the hospital with complaints of progressive shortness of breath. In the Emergency Room, he was found to be in renal failure with creatinine of 15.8 and BUN of 125, we do not know the baseline of his renal function, potassium is 4.7, carbon dioxide was 21, his hemoglobin is 11.1, white count 8.5. Renal ultrasound done that revealed bilateral echogenic kidney, no hydronephrosis. Chest CT revealed small bilateral pleural effusion, patchy pulmonary infiltrate, ____ was pneumonia. FAMILY HISTORY: Noncontributory. SOCIAL HISTORY: Positive for tobaccoism. REVIEW OF SYSTEMS: Positive for shortness of breath. He denies being confused. Denies having nausea or vomiting. Denies having chest pain. PHYSICAL EXAMINATION: GENERAL: He is awake, alert, in no acute distress. VITAL SIGNS: Blood pressure now 137/85, on admission it was 219/144, heart rate is 88, afebrile. HEENT: His pupils are round. NECK: Supple, JVD is not elevated. LUNGS: Some decreased breath sounds, but otherwise clear. CARDIOVASCULAR: Regular rate. No pericardial rub appreciate. ABDOMEN: Soft. LOWER EXTREMITIES: No edema. LABORATORY DATA: Serum sodium 137, potassium 5.0, chloride 102, carbon dioxide 18, BUN 125, creatinine 15.4, calcium 8.0, hemoglobin is 11.1. [place] [address] CONSULTATION Name: GRISEL FOSTER Room: [address] IN [facility]#: [id number] Admission: 05/25/17 Attend Phys: Liza Corcoran Discharge: Date of : 60 Report #: [id number] ASSESSMENT: A 57-year-old man with uncontrolled hypertension, diabetes, COPD, admitted with acute renal failure versus chronic kidney disease. It is possible that he has stage V chronic kidney disease and he may require chronic dialysis. At this point, he is not uremic. He is not hyperkalemic and volume status is acceptable. He is not acidotic, so I would like to do is to wait and ____ Vargas was placed. We started him on gentle hydration, workup is ordered, most likely we will need to start dialysis tomorrow. So I will asked IR to come and place tunneled dialysis catheter for us. We will start him on dialysis and await results on the workup. At this point, I cannot do biopsy because of uncontrolled hypertension. He does have uncontrolled hypertension, diabetes, COPD. Thank you very much for asking my opinion on abnormal liver function. <ELECTRONICALLY SIGNED> By: Zelalem Rosales MD 06/07/17 0912 1122 [id number] Rosales MD /[facility]
--- NOTE | 2017-06-07 09:42 | NUR ---
RECEIVED CALL FROM CYNTHIA AT [facility]. BED SET UP FOR PT AT [facility] Wed AT 3:15 PM. PT TO ARRIVE AT 2:00 PM. PT CURRENTLY IN DIALYSIS. WILL NOTIFY PT WHEN HE RETURNS TO UNIT
[2017-06-07] MEDS ORDERED: PHENERGAN 25 MG25 M1 PO (10:53)
[2017-06-07] MEDS ORDERED: GLIPIZIDE5 MG PO (12:14)
[2017-06-07] MEDS ORDERED: HYDRALAZINE 2525 MG PO (12:15)
[2017-06-07] MEDS ORDERED: LEVAQUIN 500 M500 M3 PO (12:16)
[2017-06-07] MEDS ORDERED: IMDUR 30 MG TAB30 M1 PO (12:18)
[2017-06-07] MEDS ORDERED: PREDNISONE 10 M10 MG PO (12:31)
[2017-06-07 12:46] VITALS: BP 130/83
[2017-06-07] MEDS ORDERED: CALCIUM ACETATE PO (14:22)
--- NOTE | 2017-06-07 17:21 | NUR ---
PATIENT HAD DIALYSIS THIS AM. PATIENT DISCHARGED TO HOME THIS EVENING WITH FIANCE. IV DC'D. FOLLOW UP APPTS NOTED, DIALYSIS OUTPATIENT SET UP BY CASE MANAGMENT. PATIENT'S FIANCE STATED THAT THEY COULD NOT PAY FOR ALL THE PRESCRIPTIONS. PAPERWORK AND SCRIPTS FAXED OVER TO [facility] FOR ASSISTANCE. PATIENT TAKEN OUT VIA WHEELCHAIR WITH ALL BELONGINGS.
[2017-06-09 08:09] LABS: URINE PROTEIN (MG/DL) 964.7 mg/dL (Not Estab.)
--- NOTE | 2017-06-12 14:16 | OP ---
[facility] [address] [place] [address] OPERATIVE REPORT Name: GRISEL FOSTER Room: [address] IN M.R.#: [id number] Admission: 05/25/17 Attend Phys: Liza Corcoran Discharge: 06/07/17 Date of : 60 Report #: [id number] THIS REPORT FOR: //name// CC: KUN physician/PCP Salty Cain DATE OF SERVICE: 06/04/2017 PREOPERATIVE DIAGNOSIS: End-stage renal disease requiring hemodialysis. POSTOPERATIVE DIAGNOSIS: End-stage renal disease, requiring hemodialysis. SURGEON: David Durham DO. ICT SUPPORT AND TEST ENGINEERS: None. PROCEDURE: Left upper extremity brachiocephalic AV fistula creation. ANESTHESIA: General. ESTIMATED BLOOD LOSS: 30 mL. SPECIMEN: None. COMPLICATIONS: None. CONDITION: Stable. DISPOSITION: Floor. INDICATIONS FOR THE PROCEDURE AND CONSENT: The patient is a 57-year-old male with end-stage renal disease requiring hemodialysis. He has a tunneled dialysis catheter placement for which he is currently dialyzing. He had vein mapping which demonstrated adequate cephalic veins bilaterally. The patient is predominantly right handed and therefore left upper extremity AV fistula was recommended. Risks and benefits were discussed, infection, bleeding, steal syndrome, stroke, heart attack, . The patient wished to proceed and consented and scheduled. PROCEDURE IN DETAIL: After timeout was performed, the patient was placed in supine position with circumferential sterile prep and drape of left upper extremity. Ultrasound was utilized to identify and confirm patency of the cephalic vein, was noted to be compressible throughout its the course and to be fairly large. The brachial artery location was also noted and marked on the skin. A small transverse incision was then made after injection of lidocaine and dissection carried down using Bovie electrocautery and Charcot with [address] [address] OPERATIVE REPORT Name: GRISEL FOSTER Room: [address]#: [id number] Admission: 05/25/17 Attend Phys: Liza Corcoran Discharge: 06/07/17 Date of : 60 Report #: [id number] Danielle scissors. Cephalic vein was identified and freed along its length. No significant branches were identified. Brachial artery was also identified and controlled with a vessel loop. The patient was systemically heparinized with 4000 units of heparin. The cephalic vein was then dissected out a little bit further distally and a clamped with right angle and transected with 11-blade scalpel. The cephalic vein was ligated with a 2-0 silk suture. Cephalic vein was then irrigated with heparinized saline and a bulldog clamp was applied. Heparinized saline was then used to also inject and slightly dilate the proximal cephalic vein. The cephalic vein was then fashioned as a chavis. The artery was then clamped proximally and distally with profunda clamps. A 11-blade scalpel and Lisa scissors were used to make a longitudinal arteriotomy of approximately 7 mm. The cephalic vein was then sutured in an end-to-side fashion with 6-0 Prolene without difficulty. The anastomosis was noted to be tension free. The bulldog clamp was removed and allowed to backbleed. The distal profunda clamp was removed and also allowed to backbleed and no concern for hemostasis was noted. The brachial artery was then released to provide blood flow back to the hand. The heel of the cephalic vein did have a small amount of bleeding. This was remedied with a 7-0 Prolene in a figure-of-8 fashion. The wound was then copiously irrigated and closed in layers using 3-0 Vicryl and 4-0 Monocryl suture and Dermabond dressing was applied. The patient's heparin was reversed with protamine. The patient tolerated the procedure well and was transferred to recovery in stable condition. <ELECTRONICALLY SIGNED> By: David Durham DO 06/12/17 1416 1410 [id number] Durham DO /nt
--- NOTE | 2017-07-05 16:52 | NUR ---
CALL FROM DARLENE HAQUE. SHE WAS ASKING ABOUT PTS PRESCRIPTION FOR METOPROLOL ER. SHE SAID THEY HAVENT GOTTEN HIS PRESCRIPTIONS FILLED YET HIS MEDICAID HAD NOT COME THROUGH. SHE SAID THIS MED WAS $70 AND WAS WANDERING IF HE COULD JUST TAKE HIS REGULAR METOPROLOL. EXPLAINED I COULD NOT MAKE THAT DECISION,IT WOULD NEED TO COME FROM A DR. THEY HAVE NOT FOLLOWED UP YET WITH A DR. TOLD HER TO ASK NURSE AT DIALYSIS CLINIC TO ASK HIS COUNTY AUDITOR AND HE WOULD MAKE THAT DECISION.
== END 2017-06-07 17:23 | disposition home or self-care (01) | DRG 673 ==
LOC: M.ERS 15:43 → M.ICU 17:37 → M.TBA-ER 17:37 → M.ICU 18:18 → M.2W 05-27 10:48 → M.ORTHSURG 06-06 16:02
PROVIDERS: Family Medicine; Internal Medicine Nephrology; Personal Emergency Response Attendant; ADMIT Internal Medicine
PROC: B548ZZA Ultrasonography of Superior Vena Cava, Guidance (ICD-10-PCS; 2017-05-26)
PROC: 02HV33Z Insertion of Infusion Device into Superior Vena Cava, Percutaneous Approach (ICD-10-PCS; 2017-05-26)
PROC: 5A1D70Z Performance of Urinary Filtration, Intermittent, Less than 6 Hours Per Day (ICD-10-PCS; 2017-05-27)
PROC: 5A1D70Z Performance of Urinary Filtration, Intermittent, Less than 6 Hours Per Day (ICD-10-PCS; 2017-05-28)
PROC: 5A1D70Z Performance of Urinary Filtration, Intermittent, Less than 6 Hours Per Day (ICD-10-PCS; 2017-05-29)
PROC: 0TB03ZX Excision of Right Kidney, Percutaneous Approach, Diagnostic (ICD-10-PCS; 2017-05-31)
PROC: 5A1D70Z Performance of Urinary Filtration, Intermittent, Less than 6 Hours Per Day (ICD-10-PCS; 2017-05-31)
PROC: 5A1D70Z Performance of Urinary Filtration, Intermittent, Less than 6 Hours Per Day (ICD-10-PCS; 2017-06-02)
PROC: 03170JV Bypass Right Brachial Artery to Superior Vena Cava with Synthetic Substitute, Open Approach (ICD-10-PCS; principal; 2017-06-04)
PROC: 5A1D70Z Performance of Urinary Filtration, Intermittent, Less than 6 Hours Per Day (ICD-10-PCS; 2017-06-04)
PROC: 5A1D70Z Performance of Urinary Filtration, Intermittent, Less than 6 Hours Per Day (ICD-10-PCS; 2017-06-07)
DX: N17.9 Acute kidney failure, unspecified (principal); I21.4 Non-ST elevation (NSTEMI) myocardial infarction; I50.21 Acute systolic (congestive) heart failure; J18.9 Pneumonia, unspecified organism; I13.2 Hypertensive heart and chronic kidney disease with heart failure and with stage 5 chronic kidney disease, or end stage renal disease; J44.1 Chronic obstructive pulmonary disease with (acute) exacerbation; J44.0 Chronic obstructive pulmonary disease with (acute) lower respiratory infection; I24.9 Acute ischemic heart disease, unspecified; I12.0 Hypertensive chronic kidney disease with stage 5 chronic kidney disease or end stage renal disease; N18.6 End stage renal disease; J44.9 Chronic obstructive pulmonary disease, unspecified; F17.210 Nicotine dependence, cigarettes, uncomplicated; E11.22 Type 2 diabetes mellitus with diabetic chronic kidney disease; E78.5 Hyperlipidemia, unspecified; E87.5 Hyperkalemia; E83.39 Other disorders of phosphorus metabolism; B19.20 Unspecified viral hepatitis C without hepatic coma; D64.9 Anemia, unspecified; Z91.14 Patient's other noncompliance with medication regimen; Z79.899 Other long term (current) drug therapy; Z88.0 Allergy status to penicillin